=== PATIENT | male | born 1940 | race Caucasian/White ===

== ENCOUNTER 2021-04-21 17:27 | Emergency (ER) | payer OTHER, SELFPAY ==
--- NOTE | ~2021-04-21 | XR_ITS ---
EXAMINATION: XR PELVIS CLINICAL INFORMATION: Trauma. COMPARISON: None TECHNIQUE: AP view of the pelvis. FINDINGS: The bones and soft tissues are normal. No fracture. Sacroiliac and hip joints are normal. Pubic symphysis is normal. No abnormal soft tissue calcifications. XR/XR pelvis 1-2V IMPRESSION: Unremarkable AP pelvis exam.
--- NOTE | ~2021-04-21 | CT_ITS ---
EXAMINATION: CT BRAIN AND CT CERVICAL SPINE WITHOUT CONTRAST. CLINICAL INFORMATION: Trauma. COMPARISON: None TECHNIQUE: 5 mm thin axial and 2 mm thin sagittal coronal images of brain were obtained. Subsequently 3 mm thin axial and reformatted 2 mm thin sagittal and coronal images of cervical spine were obtained. DLP 1338 FINDINGS: Brain: There is no acute intra-axial, extra-axial bleed, masses or midline shift. There is no acute infarct in evolution. No edema. The lateral ventricles are symmetrical in size and configuration with mild enlargement. There is mild perivesical hypodensity without mass effect. The bone windows reveal no calvarial abnormality. There is no scalp soft tissue abnormality. Bilateral paranasal sinuses and mastoid air cells are well-aerated. Cervical spine: On sagittal reconstructed images there is reversal of cervical lordosis. There is severe loss of C4-C5, C5-6, C6-7 and C7-T1 disc heights with moderate ventral spondylosis. The vertebral heights and alignment is maintained normal. The craniovertebral junction and the C1-C2 alignment is normal. There is significant bilateral C2-3, moderate left C3-4 and C4-5 facet joint arthropathy and hypertrophy is noted. Also visualized is bilateral posterior facet arthropathy and hypertrophy from C3-4 through C5-6 disc levels. There is no visible acute fracture, dislocation or subluxation seen. The prevertebral and paravertebral soft tissues are normal. The lung apices are clear. Visualized bilateral submandibular, parotid and thyroid lobes are symmetrical and normal CT/CT cervical spine wo con IMPRESSION: No acute intracranial process seen There is reversal of cervical lordosis with degenerative disc changes with significant ventral spondylosis C4-C5, C5-6, C6-7 and C7-T1 disc levels
--- NOTE | ~2021-04-21 | XR_ITS ---
EXAMINATION: XR LUMBOSACRAL SPINE CLINICAL INFORMATION: Trauma COMPARISON: None TECHNIQUE: Three views of the lumbosacral spine. FINDINGS: The T12 vertebral body either has small vestigial ribs or no ribs. Assuming 5 lumbar type vertebral bodies, there is a compression fracture at the L2 vertebral body. Superior endplate compression also identified at T12. Vertebral bodies maintain normal alignment. Degenerative disc disease, worse at the L4-L5 and L5-S1 levels. Anterior degenerative osteophytes, worst at L3, L4 and L5. Lateral bridging osteophytes at L1 and L2. Spinous processes are intact. Limited views of the sacroiliac joints are unremarkable. Vascular calcifications. XR/XR lumbar spine 2-3V IMPRESSION: Compression fractures at L2 and T12 are age-indeterminate. Consider follow-up with MRI to assess for acuity.
[2021-04-21 17:43] VITALS: BP 144/67; PULSE 71; RESP 18; O2SAT 97; BMI 29.1
--- NOTE | 2021-04-21 17:49 | ED.FALL ---
HPI - Fall General Chief Complaint: Fall Stated Complaint: fall Time Seen by Provider: 04/21/21 17:48 Source: patient and EMS Mode of arrival: EMS Limitations: no limitations History of Present Illness HPI Narrative: This is an 80 years old patient presented to the emergency department via ambulance after fall at home. He ambulates at baseline with a walker he was going to the bathroom, he placed a walker aside and tripped. he Huyen complaining of mild back pain complaint: fall Onset (ago): hour(s) (1) Fall from: standing Fall witnessed: no Place fall occurred: home Loss of consciousness: none Prolonged down time: no Symptoms prior to fall: none Context: tripped/slipped Location of injury: back Related Data Allergies Allergy/AdvReac Type Severity Reaction Status Date / Time aspirin Allergy Rash Verified 04/21/21 17:51 Review of Systems Review of Systems: Yes all other systems are reviewed and are negative Constitutional: Constitutional: Reports no additional constitutional complaints ENT: Reports system reviewed and no additional complaints, except as documented Cardiovascular: Cardiovascular: Denies Loss of Consciousness Respiratory: Respiratory: Denies cough Gastrointestinal: Gastrointestinal: Denies diarrhea, Denies nausea and Denies vomiting Neurologic: Reports system reviewed and no additional complaints, except as documented [facility] Past Medical History Attestation statement: The following information was validated with the patient. [facility] Narrative: HTN,DVT Social History Social History Alcohol intake: former Patient Tobacco Use Status: Former Tobacco user Use of substances other than those prescribed or required for medical reasons: No Advance Directives: No Advance Directives Information Provided: Yes Physical Exam Vital Signs: Vital Signs: Last Vital Signs Temp 98.1 F 04/21/21 20:15 Pulse 62 04/21/21 20:51 Resp 16 04/21/21 20:51 BP 123/68 04/21/21 20:51 Pulse Ox 97 04/21/21 20:51 Body Mass Index 29.1 Const: General: cooperative, comfortable, no acute distress, well developed, alert and awake HENMT: Head: Yes normal to inspection Face and sinus: Yes normal facial exam Mouth: Normal oral and palatal mucosa present Eyes: General: appearance normal, both eyes and all related structures EOM: EOMs intact bilaterally Neck: Neck: Yes normal visual inspection and Yes no lymphadenopathy Chest: Chest palpation & inspection: normal inspection of the chest and normal palpation of entire chest wall Resp: Effort & Inspection: normal respiratory effort and able to speak in complete sentences Auscultation: clear to auscultation bilaterally Cardio: Jugular venous distension: no JVD Rate: regular rate GI: Inspection: Yes normal to inspection Palpation (GI): Soft to palpation, nontender and no guarding Percussion: Yes normal to percussion Skin: Other: abrasion rt elbow Course Reevaluation(s) Reevaluation #1: Workup essentially negative including a CT C-spine, patient ambulated with a walker without any problem we steady gait ,at this point anticipate discharge home MDM - Fall Lab Data Attestation: I reviewed the patient's lab results. Result diagrams: 04/21/21 18:44 04/21/21 18:44 Labs: Lab Results 04/21/21 04/21/21 04/21/21 Range/Units 18:44 18:44 18:44 WBC 9.1 (4.8-10.8) X10*3/uL RBC 4.71 (4.60-5.80) X10*6/uL Hgb 13.1 L (14.0-18.0) g/dl Hct 39.4 L (42-52) % MCV 83.7 (80-98) fL MCH 27.8 (27.0-33.0) pg MCHC 33.2 (31.0-36.0) g/dl RDW 13.6 (11.0-16.0) % Plt Count 179 (160-400) X10*3/uL MPV 8.8 L (9.4-12.4) fL Immature Gran % (Auto) 0.9 H (0.0-0.4) % Neut % (Auto) 76.7 H (45-73) % Lymph % (Auto) 14.3 L (20-40) % Day % (Auto) 5.2 (2-11) % Eos % (Auto) 2.8 (0-4) % Baso % (Auto) 0.1 (0-2) % Lymph # (Auto) 1.3 (1.2-4.9) X10*3/uL Day # (Auto) 0.5 (0.1-1.2) X10*3/uL Eos # (Auto) 0.3 (0.0-0.4) X10*3/uL Baso # (Auto) 0.0 (0.0-0.2) X10*3/uL Abs Immat Gran (auto) 0.08 H (0.00-0.03) X10*3/uL Absolute Neuts (auto) 7.0 (2.0-8.3) X10*3/uL Absolute Nucleated RBC 0.000 (0.0-0.012) X10*3/uL Nucleated RBC % (auto) 0.0 (0.0-0.2) /100WBC PT 33.5 H (9.9-13.0) SEC INR 2.9 H (0.9-1.1) APTT 44.3 H (24.1-38.0) SEC Sodium 141 (135-145) mmol/L Potassium 3.6 (3.3-5.1) mmol/L Chloride 103 (96-108) mmol/L Carbon Dioxide 30 H (22-29) mmol/L Anion Gap 12 (12-20) BUN 22 H (9-16) mg/dL Creatinine 0.96 (0.5-1.4) mg/dL Estim Creat Clear Calc 69.7 Estimated GFR > 60 Random Glucose 93 (60-115) mg/dL Calcium 9.2 (8.4-10.2) mg/dL Total Bilirubin 0.7 (0.0-1.0) mg/dL AST 38 H (5-37) U/L ALT 38 (0-40) U/L Alkaline Phosphatase 115 (39-117) U/L Total Protein 6.0 L (6.5-8.0) g/dL Albumin 4.0 (3.5-5.0) g/dL Imaging Data CT scan - head: My impression: NAD Radiologist's impression: e and configuration with mild enlargement. There is mild perivesical hypodensity without mass effect. The bone windows reveal no calvarial abnormality. There is no scalp soft tissue abnormality. Bilateral paranasal sinuses and mastoid air cells are well-aerated. Cervical spine: On sagittal reconstructed images there is reversal of cervical lordosis. There is severe loss of C4-C5, C5-6, C6-7 and C7-T1 disc heights with moderate ventral spondylosis. The vertebral heights and alignment is maintained normal. The craniovertebral junction and the C1-C2 alignment is normal. There is significant bilateral C2-3, moderate left C3-4 and C4-5 facet joint arthropathy and hypertrophy is noted. Also visualized is bilateral posterior facet arthropathy and hypertrophy from C3-4 through C5-6 disc levels. There is no visible acute fracture, dislocation or subluxation seen. The prevertebral and paravertebral soft tissues are normal. The lung apices are clear. Visualized bilateral submandibular, parotid and thyroid lobes are symmetrical and normal? CT/CT head/brain wo con IMPRESSION: No acute intracranial process seen ? There is reversal of cervical lordosis with degenerative disc changes with significant ventral spondylosis C4-C5, C5-6, C6-7 and C7-T1 disc levels LSPINE: Radiologist's impression: Three views of the lumbosacral spine. FINDINGS: The T12 vertebral body either has small vestigial ribs or no ribs. Assuming 5 lumbar type vertebral bodies, there is a compression fracture at the L2 vertebral body. Superior endplate compression also identified at T12. Vertebral bodies maintain normal alignment. Degenerative disc disease, worse at the L4-L5 and L5-S1 levels. Anterior degenerative osteophytes, worst at L3, L4 and L5. Lateral bridging osteophytes at L1 and L2. Spinous processes are intact. Limited views of the sacroiliac joints are unremarkable. Vascular calcifications. XR/XR lumbar spine 2-3V IMPRESSION: Compression fractures at L2 and T12 are age-indeterminate. Consider follow-up with MRI to assess for acuity. Discharge Plan Discharge Clinical Impression: Fall, Abrasion, Contusion of head Patient Disposition: Home, Self-Care Instructions: Fall Prevention for Older Adults (ED), Fall Prevention (ED) Additional Instructions: Please follow-up with your primary care physician tomorrow return if you worse Referrals: Elena Hernandez MD [Primary Care Provider] - 2 days Interventions: ED Discharge Assessment Last Done: 04/21/21 21:23 Discharge Date/Time: 04/21/21 21:25
--- NOTE | 2021-04-21 17:57 | ECG_ITS ---
Test Reason : FALL Blood Pressure : / mmHG Vent. Rate : 061 BPM Atrial Rate : 061 BPM P-R Int : 170 ms QRS Dur : 088 ms QT Int : 456 ms P-R-T Axes : 021 019 021 degrees QTc Int : 459 ms Normal sinus rhythm Normal ECG No previous ECGs available Referred By: Ariel Jamil Electronically Signed By:Devin Shah
[2021-04-21 18:24] VITALS: BP 136/81; PULSE 66; RESP 17; O2SAT 97
[2021-04-21 18:50] LABS: MANUAL DIFF FLAG NO
[2021-04-21 18:53] LABS: Basophils Percent Auto 0.1 % (0-2); Eosinophils Absolute Auto 0.3 X10*3/uL (0.0-0.4); Eosinophils Percent Auto 2.8 % (0-4); Hematocrit 39.4 % (42-52); Hemoglobin 13.1 g/dl (14.0-18.0); Imm Gran Abs Auto 0.08 X10*3/uL (0.00-0.03); Imm Gran Pct Auto 0.9 % (0.0-0.4); Lymphocytes Absolute Auto 1.3 X10*3/uL (1.2-4.9); Lymphocytes Percent Auto 14.3 % (20-40); Mean Corpuscular HGB Conc 33.2 g/dl (31.0-36.0); Mean Corpuscular Hemoglobin 27.8 pg (27.0-33.0); Mean Corpuscular Volume 83.7 fL (80-98); Mean Platelet Volume 8.8 fL (9.4-12.4); Monocytes Absolute Auto 0.5 X10*3/uL (0.1-1.2); Monocytes Percent Auto 5.2 % (2-11); Neutrophils Percent Auto 76.7 % (45-73); Platelet Count 179 X10*3/uL (160-400); Red Blood Count 4.71 X10*6/uL (4.60-5.80); Red Cell Distribution Width 13.6 % (11.0-16.0); White Blood Count 9.1 X10*3/uL (4.8-10.8)
[2021-04-21 19:15] LABS: Alanine Aminotransferase 38 U/L (0-40); Alkaline Phosphatase 115 U/L (39-117); Anion Gap 12 (12-20); Aspartate Amino Transferase 38 U/L (5-37); Bilirubin Total 0.7 mg/dL (0.0-1.0); Blood Urea Nitrogen 22 mg/dL (9-16); Calcium 9.2 mg/dL (8.4-10.2); Carbon Dioxide 30 mmol/L (22-29); Chloride 103 mmol/L (96-108); Creatinine Clr Calc Pharmacy 69.7; Estimated Glomerular Filt Rate > 60; Glucose Random 93 mg/dL (60-115); Potassium 3.6 mmol/L (3.3-5.1); Sodium 141 mmol/L (135-145)
[2021-04-21 19:22] LABS: INTERNATIONAL NORM RATIO 2.9 (0.9-1.1); Prothrombin Time 33.5 SEC (9.9-13.0)
[2021-04-21 19:24] LABS: Partial Thromboplastin Time 44.3 SEC (24.1-38.0)
[2021-04-21 20:15] VITALS: BP 149/99; PULSE 63; RESP 18; TEMP 36.7; O2SAT 98
--- NOTE | 2021-04-21 20:19 | PC.NURSE ---
pt urinating in urinal and requesting food. Pt requesting to go home. pt in NAD and will continue to monitor pt.
--- NOTE | 2021-04-21 20:49 | PC.NURSE ---
PT UP AND AMBULATES W/O DIFFICULTY WITH A WALKER. MD AWARE. PT DENIES ANY COMPLAINTS. PT A&OX3, SKIN W/D. RESPIRATIONS EASY, N/L. PT CALLING FOR A RIDE HOME. IV REMOVED INTACT.
[2021-04-21 20:51] VITALS: BP 123/68; PULSE 62; RESP 16; O2SAT 97
== END 2021-04-21 21:25 | disposition home or self-care (01) ==
PROVIDERS: Emergency Provider Emergency Medicine; PCP Pediatrics
DX: S00.01XA Abrasion of scalp, initial encounter (principal); S00.93XA Contusion of unspecified part of head, initial encounter; M54.5 Low back pain; G44.309 Post-traumatic headache, unspecified, not intractable; W01.0XXA Fall on same level from slipping, tripping and stumbling without subsequent striking against object, initial encounter; Y93.9 Activity, unspecified; Y92.009 Unspecified place in unspecified non-institutional (private) residence as the place of occurrence of the external cause; Y99.9 Unspecified external cause status; Z87.891 Personal history of nicotine dependence
CPT/HCPCS: 36415; 70450; 72100; 72125; 72170; 80053; 85025; 85610; 85730; 93005; 99285

== ENCOUNTER 2024-11-27 11:41 | Outpatient (REF) | payer MEDICAID, SELFPAY ==
[2024-11-27 14:21] LABS: MANUAL DIFF FLAG NO
[2024-11-27 14:32] LABS: Basophils Absolute Auto 0.1 X10*3/uL (0.0-0.2); Basophils Percent Auto 0.6 % (0-2); Eosinophils Absolute Auto 0.2 X10*3/uL (0.0-0.4); Eosinophils Percent Auto 2.3 % (0-4); Hematocrit 41.1 % (42.0-52.0); Hemoglobin 13.4 g/dl (14.0-18.0); Imm Gran Abs Auto 0.04 X10*3/uL (0.00-0.03); Imm Gran Pct Auto 0.5 % (0.0-0.4); Lymphocytes Absolute Auto 1.2 X10*3/uL (1.2-4.9); Lymphocytes Percent Auto 14.5 % (20-40); Mean Corpuscular HGB Conc 32.6 g/dl (31.0-36.0); Mean Corpuscular Hemoglobin 26.7 pg (27.0-33.0); Mean Corpuscular Volume 81.9 fL (80.0-98.0); Mean Platelet Volume 9.1 fL (9.4-12.4); Monocytes Absolute Auto 0.5 X10*3/uL (0.1-1.2); Monocytes Percent Auto 5.5 % (2-11); Neutrophils Absolute Auto 6.3 x10*3/uL (2.0-8.3); Neutrophils Percent Auto 76.6 % (45-73); Platelet Count 242 X10*3/uL (160-400); Red Blood Count 5.02 X10*6/uL (4.60-5.80); Red Cell Distribution Width 14.1 % (11.0-16.0); White Blood Count 8.3 X10*3/uL (4.8-10.8)
[2024-11-27 14:58] LABS: Alanine Aminotransferase 19 U/L (0-40); Albumin Level 3.9 g/dL (3.5-5.0); Alkaline Phosphatase 153 U/L (39-117); Anion Gap 10 (12-20); Aspartate Amino Transferase 27 U/L (5-37); Bilirubin Direct 0.4 mg/dL (0.0-0.5); Bilirubin Total 0.9 mg/dL (0.0-1.0); Blood Urea Nitrogen 15 mg/dL (9-16); Calcium 9.5 mg/dL (8.4-10.2); Carbon Dioxide 30 mmol/L (22-29); Chloride 105 mmol/L (96-108); Estimated Glomerular Filt Rate > 60; Glucose Random 83 mg/dL (60-115); Potassium 3.6 mmol/L (3.3-5.1); Sodium 141 mmol/L (135-145); Total Protein 6.9 g/dL (6.5-8.0)
--- OUTSIDE RECORDS SUMMARY | 2024-11-27 15:06 | XMS_ITS | Encounter Summary ---
Author Organization [employer] Address [address] [facility] [address] [place] [address] Care Team Providers Care Environmental Lawyer Name Role Phone Elena Hernandez MD Primary Care Provider [phone] Encounter Details Date Type Department Care Team (Late st Contact Info) Description 11/27/2024 11:15 AM EDT Office Visit [facility] [address] [place], [place] [phone] Elena Hernandez MD [address] [place], [place] [phone] Benign hypertension (Primary Dx); Persistent atrial fibrillation (CMS/HCC); Muscular dystrophy (CMS/HCC); Dietary counseling; Exercise counseling Social History Tobacco Use Types Packs/Day Years Used Date Smoking Tobacco: Former Cigarettes Passive Smoke Exposure: Past Smokeless Tobacco: Never Depression Answer Date Recorded Patient Health Questionnaire-9 Score 0 02/08/2023 Housing Stability Answer Date Recorded What is your housing situation today? I have drew suarez 07/04/[address] you li ve. Do you have problems with any of the following? None of the above 07/04/2023 Food Insecurity Answer Date Recorded Within the past 12 months, y ou worried that your food would run out before you got money to buy more: Sometimes True 2022 Within the past 12 months,th e food you bought just didn't last and you didn't have enough money to get more: Never True 07/04/2023 Transportation Answer Date Recorded In the past 12 months, has l ack of transportation kept you from medical appts, meetings, work or from getting things needed for daily living? No 07/04/2023 Utilities Answer Date Recorded In the past 12 months, has t he electric, gas, oil or water company threatened to shut off services in your home? No 07/04/2023 Depression Answer Date Recorded Patient Health Questionnaire-2 Score 0 02/08/2023 Sex and Gender Information Value Date Recorded Sex Assigned at Male 07/17/2022 10:17 AM EDT Legal Sex Male 10:17 AM EDT Gender Identity Choose not to disclose 10:17 AM EDT Sexual Orientation Choose not to disclose 2021 10:17 AM EDT documented as of this encounter Last Filed Vital Signs Vital Sign Reading Time Taken Comments Blood Pressure 151/81 11/27/2024 11:17 AM EDT Pulse 68 11/27/2024 11:17 AM EDT Temperature 36 ??C (96.8 ??F) 11/27/2024 11:17 AM EDT Respiratory Rate 20 11/27/2024 11:17 AM EDT Oxygen Saturation 99% 11/27/2024 11:17 AM EDT Inhaled Oxygen Concentration - - Weight 93 kg (205 lb) 11/27/2024 11:17 AM EDT Height 170.2 cm (5' 7 ) 11/27/2024 11:17 AM EDT Body Mass Index 32.11 11/27/2024 11:17 AM EDT documented in this encounter Progress Notes * Elena Hernandez MD - 11/27/2024 11:15 AM EDT Subjective Patient ID: Magdaleno Mena is a 84 y.o. adult who presents for follow-up medical problems. 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 he is having very difficult time with bathing and his home day care provider cannot lift him in and out of tub for which he is requesting a walking tub if possible. He is using his electrical wheelchair for ambulation all the time. Denies choking on food. Review of Systems Constitutional: Negative for activity change, chills, fever and unexpected weight change. Respiratory: Negative for cough, shortness of breath and wheezing. Cardiovascular: Negative for chest pain, palpitations and leg swelling. Gastrointestinal: Negative for abdominal pain and blood in stool. Endocrine: Negative for polydipsia and polyuria. Genitourinary: Negative for decreased urine volume, difficulty urinating, dysuria and hematuria. Musculoskeletal: Negative for arthralgias and gait problem. Skin: Negative for color change and rash. Neurological: Positive for weakness. Negative for dizziness, seizures, light- headedness and headaches. Hematological: Negative for adenopathy. Psychiatric/Behavioral: Negative for dysphoric mood, hallucinations, sleep disturbance and suicidalideas. The patient is not nervous/anxious. Objective BP (!) 151/81 (BP Location: Left arm, Patient Position: Sitting, BP Cuff Size: Adult) Pulse 68 Temp 96.8 ??F (36 ??C) (Oral) Resp 20 Ht 5' 7 (1.702 m) Wt 205 lb (93 kg) SpO2 99% BMI 32.11 kg/m?? Physical Exam Constitutional: General: Magdaleno is not in acute distress. Appearance: Normal appearance. Magdaleno is not ill-appearing. HENT: Head: Normocephalic. Right Ear: Tympanic membrane and ear canal normal. Left Ear: Tympanic membrane and ear canal normal. Nose: Nose normal. Mouth/Throat: Mouth: Mucous membranes are moist. Pharynx: No oropharyngeal exudate or posterior oropharyngeal erythema. Eyes: Extraocular Movements: Extraocular movements intact. Conjunctiva/sclera: Conjunctivae normal. Pupils: Pupils are equal, round, and reactive to light. Cardiovascular: Rate and Rhythm: Normal rate and regular rhythm. Pulses: Normal pulses. Heart sounds: Normal heart sounds. Pulmonary: Effort: Pulmonary effort is normal. No respiratory distress. Breath sounds: Normal breath sounds. Abdominal: Palpations: Abdomen is soft. Musculoskeletal: General: Normal range of motion. Cervical back: Normal range of motion. Right lower leg: No edema. Left lower leg: No edema. Comments: In wheelchair Skin: General: Skin is warm. Capillary Refill: Capillary refill takes less than 2 seconds. Findings: No rash. Neurological: General: No focal deficit present. Mental Status: Magdaleno is alert and oriented to person, place, and time. Motor: Weakness present. Psychiatric: Mood and Affect: Mood normal. Behavior: Behavior normal. Thought Content: Thought content normal. Judgment: Judgment normal. Assessment/Plan Diagnoses and all orders for this visit: Benign hypertension Comments: Patient states he has not taken his meds yet. Advised to take them ROCAEL. Check labs today and call with results. Low-salt diet. Orders: - TSH W/Reflex to FT4; Future - Hepatic Function Panel; Future - Vitamin B12/Folate, Serum Panel; Future - CBC auto differential; Future - Basic Metabolic Panel; Future Persistent atrial fibrillation (CMS/HCC) Comments: Rate and rhythm controlled today on meds. Takes Eliquis twice daily. Continue for now. Orders: - TSH W/Reflex to FT4; Future - Hepatic Function Panel; Future - Vitamin B12/Folate, Serum Panel; Future - CBC auto differential; Future - Basic Metabolic Panel; Future Muscular dystrophy (CMS/HCC) Comments: Denies any falls in quite a few months. Using his electric wheelchair more than ever. Denies pain or cramps. Has helpers at home. Need for walking tub due to worsening muscular dystrophy.dme nurse will be notified . Dietary counseling Exercise counseling documented in this encounter Plan of Treatment Pending Results Name Type Priority Associated Diagnoses Date /Time Hepatic Function Panel Lab Routine Benign hypertension Persistent atrial fibrillation (CMS/HCC) 11/27/2024 11:42 AM EDT Basic Metabolic Panel Lab Routine Benign hypertension Persistent atrial fibrillation (CMS/HCC) 11/27/2024 11:42 AM EDT Scheduled Orders Name Type Priority Associated Diagnoses Orde r Schedule TSH W/Reflex to FT4 Lab Routine Benign hypertension Persistent atrial fibrillation (CMS/HCC) Expected: 11/27/2024 (Approximate), Expires: 11/27/2025 Vitamin B12/Folate, Serum Panel Lab Routine Benign hypertension Persistent atrial fibrillation (CMS/HCC) Expected: 11/27/2024, Expires: 11/27/2025 documented as of this encounter Procedures Procedure Name Priority Date/Time Associated Diagnosis Comments CBC WITH AUTO DIFFERENTIAL Routine 11/27/2024 11:42 AM EDT Benign hypertension Persistent atrial fibrillation (CMS/HCC) HEPATIC FUNCTION PANEL Routine 11/27/2024 11:42 AM EDT Benign hypertension Persistent atrial fibrillation (CMS/HCC) BASIC METABOLIC PANEL Routine 11/27/2024 11:42 AM EDT Benign hypertension Persistent atrial fibrillation (CMS/HCC) documented in this encounter Results * (ABNORMAL) CBC auto differential (11/27/2024 11:42 AM EDT) White Blood Count 8.3 4.8 - 10.8 X10*3/uL [facility] Red Blood Count 5.02 4.60 - 5.80 X10*6/uL [facility] Hemoglobin 13.4(L) 14.0 - 18.0 g/dl [facility] Hematocrit 41.1(L) 42.0 - 52.0 % [facility] Mean Corpuscular Volume 81.9 80.0 - 98.0 fL [facility] Mean Corpuscular Hemoglobin 26.7(L) 27.0 - 33.0 pg [facility] Mean Corpuscular HGB Conc 32.6 31.0 - 36.0 g/dl [facility] Red Cell Distribution Width 14.1 11.0 - 16.0 % [facility] Platelet Count 242 160 - 400 X10*3/uL [facility] Mean Platelet Volume 9.1(L) 9.4 - 12.4 fL [facility] Neutrophils Percent Auto 76.6(H) 45 - 73 % [facility] Imm Gran Pct Auto 0.5(H) 0.0 - 0.4 % [facility] Lymphocytes Percent Auto 14.5(L) 20 - 40 % [facility] Monocytes Percent Auto 5.5 2 - 11 % [facility] Eosinophils Percent Auto 2.3 0 - 4 % [facility] Basophils Percent Auto 0.6 0 - 2 % [facility] NRBC Pct Auto 0.0 0.0 - 0.2 /100WBC [facility] Neutrophils Absolute Auto 6.3 2.0 - 8.3 x10*3/uL [facility] Imm Gran Abs Auto 0.04(H) 0.00 - 0.03 X10*3/uL [facility] Lymphocytes Absolute Auto 1.2 1.2 - 4.9 X10*3/uL [facility] Monocytes Absolute Auto 0.5 0.1 - 1.2 X10*3/uL [facility] Eosinophils Absolute Auto 0.2 0.0 - 0.4 X10*3/uL [facility] Basophils Absolute Auto 0.1 0.0 - 0.2 X10*3/uL [facility] NRBC Abs Auto 0.000 0.0 - 0.012 X10*3/uL [facility] Blood Venous blood specimen / Unknown 11/27/2024 11:42 AM EDT 11/27/2024 2:13 PM EDT us Elena Hernandez MD LAB BLOOD ORDERABLES Final Re sult Performing Organization Address City/State/[facility] Co de Phone Number [facility] [address] [place] [address] [phone] documented in this encounter Visit Diagnoses Diagnosis Benign hypertension- Primary Essential hypertension, benign Persistent atrial fibrillation (CMS/HCC) Atrial fibrillation 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
--- OUTSIDE RECORDS SUMMARY | 2024-11-27 15:06 | XMS_ITS | Encounter Summary ---
Author Organization [employer] Address [address] [facility] [facility] [address] [place] [address] Care Team Providers Care Glue Jointer Feeder Name Role Phone Elena Hernandez MD Primary Care Provider [phone] Encounter Details Date Type Department Care Team (Late st Contact Info) Description 11/18/2024 Telephone [facility] [address] [place], [place] [phone] Elena Hernandez MD [address] [place], [place] [phone] Social History Tobacco Use Types Packs/Day Years [...] AM EDT documented as of this encounter Miscellaneous Notes * Telephone Encounter - Petra Daniels RN - 11/20/2024 12:15 PM EST TC placed to [facility] pharmacy regarding message received. Advised [facility] that PCP will see pt next week and medication is not to be filled until PCP sees pt as they have not been evaluated since 2022. [employer] wanted to confirm and ensure pt aware as they will be sending his medications out to him without the potassium chloride 20 meq ER tabs. Pt needs evaluation by PCP before decision is made regarding the potassium chloride 20 meq ER tabs. * Telephone Encounter - Brissa Montana - 11/20/2024 11:44 AM EST Tc from Mara with [facility] Pharmacy requesting med refill (potassium chloride 20 meq ER tabs). Cork Cutter advised Mara PCP is requesting pt come in for a visit and was scheduled for november. Mara states pt its going be with out med on Sunday. * Telephone Encounter - Shari Bai RN - 11/18/2024 3:53 PM EST Explained to patient that he has not been seen in the office since 2022 and provider is requesting he come in for a visit. Patient agreed, appointment scheduled. * Telephone Encounter - Shari Bai RN - 11/18/2024 12:19 PM EST TC to [facility]. Pharm staff stated there was a message that stated Patient needs to see primary before they can refill the potassium chloride 20 meq ER tabs. Routing to provider to see if patient needs an appointment, or if script can be sent to [facility]. * Telephone Encounter - Hailey Park - 11/18/2024 10:49 AM EST Tc from pt requesting to speak with a nurse regarding medications . States went to [facility] butwas told to contact pcp. No further inform given. Please call pt to clarify. documented in this encounter Plan of Treatment Not on file documented as of this encounter Visit Diagnoses Not on filedocumented in this encounter Additional Health Concerns Assessment Noted Time PHQ-9 Depression Total Score: 0 02/09/20 23 2:15 PM EDT documented as of this encounter Care Teams Glue Jointer Feeder Relationship Specialty Start Date End Date Elena Hernandez MD [address] [place] [phone] PCP - General Family Medicine 09/17/18 documented as of this encounter
--- OUTSIDE RECORDS SUMMARY | 2024-11-27 15:06 | XMS_ITS | Encounter Summary ---
Author Organization [employer] Address [address] [facility] 7t [place] [address] Care Team Providers Care Public Accountant Name Role Phone Elena Hernandez MD Primary Care Provider [phone] Reason for Visit * Reason Onset Date Comments Med Refill 05/02/2024 Encounter Details Date Type Department Care Team (Late st Contact Info) Description 05/02/2024 Telephone [facility] MEDICINE [address] [place] [address] Elena Hernandez MD 505 [place], [place] [phone] Med Refill Social History Tobacco Use Types Packs/Day Years [...] encounter Miscellaneous Notes * Telephone Encounter - Demetrius Asif - 05/02/2024 9:52 AM EDT TC from pt requesting medication refill. Medications needing refill : metoprolol succinate XL (Toprol-XL) 100 MG 24 hr tablet To be sent to: [id number] [address] documented in this encounter Plan of Treatment Not on file documented as of this encounter Visit Diagnoses Not on filedocumented in this encounter Additional Health Concerns Assessment Noted Time PHQ-9 Depression Total Score: 0 02/09/20 23 2:15 PM EDT documented as of this encounter Care Teams Public Accountant Relationship Specialty Start Date End Date Elena Hernandez MD [address] [place] [id number] PCP - General Family Medicine 09/17/18 documented as of this encounter
--- OUTSIDE RECORDS SUMMARY | 2024-11-27 15:06 | XMS_ITS | Clinical Summary ---
Author Organization [employer] Address [address] [facility] 7t [place] [address] Care Team Providers Care General Utility Worker Name Role Phone Elena Hernandez MD Primary Care Provider [phone] Allergies Active Allergy Reactions Criticality Noted Date Comments Aspirin Hives Medications metoprolol succinate XL (Toprol-XL) 100 MG 24 hr tabletIndications :Primary hypertension TAKE 1 TABLET BY MOUTH EVERY DAY 28 tablet 11 4 Active atorvastatin (Lipitor) 80 MG tabletIndications :Dyslipidemia TAKE 1 TABLET BY MOUTH EVERY DAY 28 tablet 11 4 Active cholecalciferol VITAMIN D (Vitamin D-3) 50 MCG (1999) tabletIndications :Vitamin D deficiency TAKE 1 TABLET BY MOUTH EVERY DAY 90 tablet 1 4 Active potassium chloride CR (KLOR-CON) 20 MEQ ER tabletIndications :Hypokalemia TAKE 1 TABLET BY MOUTH EVERY DAY 28 tablet 1 5 Active apixaban (Eliquis) 2.5 MG tabletIndications :Atrial fibrillation and flutter (CMS/HCC) TAKE 1 TABLET BY MOUTH TWICE A DAY 56 tablet 3 5 Active hydroCHLOROthiazi de (HYDRODiuril) 25 MG tabletIndications :Primary hypertension TAKE 1 TABLET BY MOUTH EVERY DAY IN THE MORNING 28 tablet 3 5 Active Active Problems Problem Noted Date Diagnosed Date Benign hypertension 04/12/2016 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 MED & PEDS [address] [place] [address] Elena Hernandez MD Benign hypertension (Primary Dx); Persistent atrial fibrillation (CMS/HCC); Muscular dystrophy (CMS/HCC); Dietary counseling; Exercise counseling 11/27/2024 Travel 11/18/2024 Telephone [facility] MED & PEDS [address] [place] [address] Elena Hernandez MD 11/15/2024 Refill [facility] MEDICINE [address] [place], [place] [phone] Elena Hernandez MD Hypokalemia 10/16/2024 Refill [facility] MED & PEDS [address] [place] [address] Elena Hernandez MD Atrial fibrillation and flutter (CMS/HCC); Primary hypertension 09/18/2024 Refill [facility] MEDICINE [address] [place], [place] [phone] Elena Hernandez MD Hypokalemia from Last 3 Months Social History Tobacco Use Types Packs/Day Years Used Date Smoking Tobacco: Former Cigarettes Passive Smoke Exposure: Past Smokeless Tobacco: Never Tobacco Cessation:Counseling Given: Not Answered Depression Answer Date Recorded Patient Health Questionnaire-9 [...] t he electric, gas, oil or water [employer] threatened to shut off services in your home? No 07/04/2023 Depression Answer Date Recorded Patient Health Questionnaire-2 Score 0 02/08/2023 Sex and Gender Information Value Date Recorded Sex Assigned at Male 07/17/2022 10:17 AM EDT Legal Sex Male 10:17 AM EDT Gender Identity Choose not to disclose 10:17 AM EDT Sexual Orientation Choose not to disclose 2021 10:17 AM EDT Last Filed Vital Signs Vital Sign Reading [...] Mass Index 32.11 11/27/2024 11:17 AM EDT Plan of Treatment Health Maintenance Due Date Last Done Comments Alcohol/Substance Use Screening 1952 DTaP/Tdap/Td Vaccines (1 - Tdap) 11/30/2007 11/29/2007 RSV Patients and Patients Aged 60 years or older (1 - 1-dose 75+ series) 2013 Zoster Vaccines (2 of 3) 09/06/2015 07/12/2015 Depression Screening 02/09/2024 02/08/2023, 02/09/20 23 SDOH Screening 02/09/2024 02/08/2023 COVID-19 Vaccine (3 - season) 2024 11/25/2020, 10/29/2020 Influenza Vaccine (#1) 2024 , 07/29/2019, 10/19/2017, Additional history exists Tobacco Screening 11/27/2025 11/27/2024 Lipid Panel 02/21/2028 02/20/2023, 06/01/2020 Pneumococcal Vaccine: 50+ Years Completed 05/29/2017, 12/04/2005 HIB Vaccines Aged Out No longer eligi ble based on patient's age to complete this topic HPV Vaccines Aged Out No longer eligi ble based on patient's age to complete this topic Hepatitis A Vaccines Aged Out No long er eligible based on patient's age to complete this topic Hepatitis B Vaccines Aged Out No long er eligible based on patient's age to complete this topic IPV Vaccines Aged Out No longer eligi ble based on patient's age to complete this topic Meningococcal Vaccine Aged Out No abena starla eligible based on patient's age to complete this topic RSV under 20 months Aged Out No longe r eligible based on patient's age to complete this topic Rotavirus Vaccines Aged Out No longer eligible based on patient's age to complete this topic Procedures Procedure Name Priority Date/Time Associated Diagnosis Comments BASIC METABOLIC PANEL Routine 11/27/2024 11:42 AM EDT Benign hypertension Persistent atrial fibrillation (CMS/HCC) CBC WITH AUTO DIFFERENTIAL Routine 11/27/2024 11:42 AM EDT Benign hypertension Persistent atrial fibrillation (CMS/HCC) HEPATIC FUNCTION PANEL Routine 11/27/2024 11:42 AM EDT Benign hypertension Persistent atrial fibrillation (CMS/HCC) LIPID PANEL, STANDARD Routine 02/20/2023 12:20 PM EDT Dyslipidemia Primary hypertension from Last 3 Months or Most Recently Relevant to Health Maintenance Results * (ABNORMAL) CBC auto differential (11/27/2024 11:42 AM EDT) White Blood Count 8.3 4.8 - 10.8 X10*3/uL [facility] Red Blood Count 5.02 4.60 - 5.80 X10*6/uL [facility] Hemoglobin 13.4(L) 14.0 - 18.0 g/dl [facility] Hematocrit 41.1(L) 42.0 - 52.0 % [facility] Mean Corpuscular Volume 81.9 80.0 - 98.0 fL [facility] Mean Corpuscular Hemoglobin 26.7(L) 27.0 - 33.0 pg [facility] Mean Corpuscular HGB Conc 32.6 31.0 - 36.0 g/dl [facility] Red Cell Distribution Width 14.1 11.0 - 16.0 % [facility] Platelet Count 242 160 - 400 X10*3/uL [facility] Mean Platelet Volume 9.1(L) 9.4 - 12.4 fL [facility] Neutrophils Percent Auto 76.6(H) 45 - 73 % [facility] Imm Gran Pct Auto 0.5(H) 0.0 - 0.4 % [facility] Lymphocytes Percent Auto 14.5(L) 20 - 40 % [facility] Monocytes Percent Auto 5.5 2 - 11 % [facility] Eosinophils Percent Auto 2.3 0 - 4 % [facility] Basophils Percent Auto 0.6 0 - 2 % [facility] NRBC Pct Auto 0.0 0.0 - 0.2 /100WBC [facility] Neutrophils Absolute Auto 6.3 2.0 - 8.3 x10*3/uL [facility] Imm Gran Abs Auto 0.04(H) 0.00 - 0.03 X10*3/uL [facility] Lymphocytes Absolute Auto 1.2 1.2 - 4.9 X10*3/uL [facility] Monocytes Absolute Auto 0.5 0.1 - 1.2 X10*3/uL [facility] Eosinophils Absolute Auto 0.2 0.0 - 0.4 X10*3/uL [facility] Basophils Absolute Auto 0.1 0.0 - 0.2 X10*3/uL [facility] NRBC Abs Auto 0.000 0.0 - 0.012 X10*3/uL [facility] Blood Venous blood specimen / Unknown 11/27/2024 11:42 AM EDT 11/27/2024 2:13 PM EDT us Elena Hernandez MD LAB BLOOD ORDERABLES Final Re sult [facility] [address] [place] [phone] * Lipid Panel, Standard (02/20/2023 12:20 PM EDT) Cholesterol, Total 98 <200 mg/dL [facility] HDL Cholesterol 51 > OR = 40 mg/dL [facility] Triglycerides 138 <150 mg/dL [facility] LDL Cholesterol 25 mg/dL (calc) [facility] Comment: Reference range: <100 Desirable range <100 mg/dL for primary prevention; ?? <70 mg/dL for patients with CHD or diabetic patients with > or = 2 CHD risk factors. LDL-C is now calculated using the Elvira calculation, which is a validated novel method providing better accuracy than the Friedewald equation in the estimation of LDL-C. Pablo SS et al. KIRILL. 2013;310(19): 0615-3946 (http://education.OPENLANE/faq/DMD571) Chol/HDLC Ratio 1.9 <5.0 (calc) [facility] Non-HDL Cholesterol 47 <130 mg/dL (calc) [facility] Comment: For patients with diabetes plus 1 major ASCVD risk factor, treating to a non-HDL-C goal of <100 mg/dL (LDL-C of <70 mg/dL) is considered a therapeutic option. Blood Venous blood specimen / Unknown 02/20/2023 12:20 PM EDT 02/20/2023 12:21 PM EDT Narrative [facility] - 02/21/2023 5:03 AM EDT FASTING:NO FASTING: NO us Elena Hernandez MD LAB BLOOD ORDERABLES Final Re sult [facility] [address], [place] [address] [facility] [address] [place] [phone] from Last 3 Months or Most Recently Relevant to Health Maintenance Insurance MEDICARE [facility] Care Teams General Utility Worker Relationship Specialty Start Date End Date Elena Hernandez MD [address] [place] [phone] PCP - General Family Medicine 09/17/18
--- OUTSIDE RECORDS SUMMARY | 2024-11-27 15:06 | XMS_ITS | Encounter Summary ---
Author Organization [employer] Address [address] [facility] 7t [place] [address] Care Team Providers Care Support Group Manager Name Role Phone Elena Hernandez MD Primary Care Provider [phone] Reason for Visit * Reason Comments Med Refill Encounter Details Date Type Department Care Team ([facility] st Contact Info) Description 02/06/2024 Refill [facility]S [address] [place], [place] [phone] Elena Hernandez MD [address] [place] [address] Hypokalemia Social History Tobacco Use Types Packs/Day Years [...] AM EDT documented as of this encounter Plan of Treatment Not on file documented as of this encounter Visit Diagnoses Diagnosis Hypokalemia Hypopotassemia documented in this encounter Additional Health Concerns Assessment Noted Time PHQ-9 Depression Total Score: 0 02/09/20 23 2:15 PM EDT documented as of this encounter Care Teams Support Group Manager Relationship Specialty Start Date End Date Elena Hernandze MD [address] [place] [phone] PCP - General Family Medicine 09/17/18 documented as of this encounter
--- OUTSIDE RECORDS SUMMARY | 2024-11-27 15:06 | XMS_ITS | Encounter Summary ---
Author Organization [employer] Address [address] [facility] [address] [place] [address] Care Team Providers Care Blind Slat Stapling Machine Operator Name Role Phone Elena Hernandez MD Primary Care Provider [phone] Reason for Visit * Reason Comments Med Refill Encounter Details Date Type Department Care Team ([facility] st Contact Info) Description 11/15/2024 Refill [facility] MEDICINE [address] [place] [address] Elena Hernandez MD [address] [place], [place] [phone] Hypokalemia Social History Tobacco Use Types Packs/Day Years Used Date Smoking Tobacco: Former Cigarettes Passive Smoke Exposure: Past Smokeless Tobacco: Never Depression Answer Date Recorded Patient Health Questionnaire-9 Score 0 02/08/2023 Housing Stability Answer Date Recorded What is your housing situation today? I have drewkatlyn suarez 07/04/[address] you [...] documented as of this encounter Care Teams Blind Slat Stapling Machine Operator Relationship Specialty Start Date End Date Elena Hernandez MD [address] [place] [id number] PCP - General Family Medicine 09/17/18 documented as of this encounter
--- OUTSIDE RECORDS SUMMARY | 2024-11-27 15:06 | XMS_ITS | Encounter Summary ---
Author Organization [employer] Address [address] [facility] [address] [place] [address] Care Team Providers Care Franchise Development Manager Name Role Phone Elena Hernandez MD Primary Care Provider [phone] Encounter Details Date Type Department Care Team (Latest Contact Info) Description 11/27/2024 Travel Social History Tobacco Use Types Packs/Day Years [...] documented as of this encounter Care Teams Franchise Development Manager Relationship Specialty Start Date End Date Elena Hernandez MD [address] [place] [phone] PCP - General Family Medicine 09/17/18 documented as of this encounter
--- OUTSIDE RECORDS SUMMARY | 2024-11-27 15:06 | XMS_ITS | Encounter Summary ---
Author Organization [employer] Address [address] [facility] 7t [place] [address] Care Team Providers Care Aeronautical Drafter Name Role Phone Elena Hernandez MD Primary Care Provider [phone] Reason for Visit * Reason Comments Med Refill Encounter Details Date Type Department Care Team (Late st Contact Info) Description 10/23/2022 Refill [facility] MEDICINE [address] [place], [place] [phone] Elena Hernandez MD [address] [place], [place] [phone] Social History Tobacco Use Types Packs/Day Years Used Date Smoking Tobacco: Never Assessed Sex and Gender Information Value Date Recorded [...] Diagnoses Not on filedocumented in this encounter Care Teams Aeronautical Drafter Relationship Specialty Start Date End Date Elena Hernandez MD [address] [place] [address] PCP - General Family Medicine 09/17/18 documented as of this encounter
[2024-11-27 15:14] LABS: Folate 7.3 ng/mL (> or = 4.0); Vitamin B12 194 pg/mL (200-900)
[2024-11-27 15:18] LABS: TSH reflex Free T4 5.21 uIU/mL (0.32-4.0)
[2024-11-27 16:35] LABS: Free T4 (Free Thyroxine) 1.06 ng/dL (0.71-1.85)
== END 2024-11-27 11:42 | disposition home or self-care (01) ==
LOC: HO.CHCLDS 11:41
PROVIDERS: Visit Provider Pediatrics
DX: I10 Essential (primary) hypertension (principal); I48.19 Other persistent atrial fibrillation
CPT/HCPCS: 36415; 80048; 80076; 82607; 82746; 84439; 84443; 85025